=== PATIENT | male | born 2005 | race Caucasian/White ===

== ENCOUNTER 2025-01-26 14:18 | Emergency (ER) | payer OTHER, SELFPAY ==
[2025-01-26 14:50] VITALS: BP 124/68; PULSE 64; RESP 18; TEMP 36.9; O2SAT 99; BMI 25.8
[2025-01-26] MEDS: LIDOCAINE/EPINEP/TETRACAINE 3 ML GEL..ML. TOPICAL (15:12)
--- NOTE | 2025-01-26 15:19 | ED.WOUNDLAC ---
HPI - Wound/Laceration General Date Seen: 01/26/25 Chief Complaint: Laceration/Wound Stated Complaint: Cut RT Index finger Time Seen by Provider: 01/26/25 14:52 Source: patient Mode of arrival: ambulatory Limitations: no limitations History of Present Illness HPI narrative: Patient is a 19-year-old male presenting to emergency department laceration to his right index finger. It is on the dorsal aspect juice distal to the MCP. Has full range of motion of the finger. This happened at work his hand slipped and caught on not. Is working on a car at that time. No other concerns noted. Last tetanus shot was 2016 Related Data Previous Rx's ?Medication ?Instructions ?Recorded cephalexin 500 mg capsule 500 mg PO QID #20 caps 01/26/25 Allergies Allergy/AdvReac Type Severity Reaction Status Date / Time No Known Drug Allergies Allergy Verified 01/26/25 14:50 Review of Systems Narrative: Pertinent systems reviewed and were negative unless stated in HPI Exam Narrative: Exam Narrative: Const: Well-nourished, Well-developed, in mild distress Eyes: PERRL, no conjunctival injection, and symmetrical lids HENT: Atraumatic external nose and ears. Moist mucous membranes. MSK:Extremities w/o deformity, Normal Active ROM Skin: Warm, Dry. 0.5 cm laceration on the dorsal aspect of the right index finger about 1 or 2 cm up from the MCP. Neuro: Normal Muscle tone, No focal neurological deficits. Psych: Awake, Alert, & Oriented x3. Appropriate mood and affect. Const: Vital Signs, click to edit/add: Vital Signs - 24 hr 01/26/25 14:50 Temperature 98.5 F Pulse Rate [Pulse Oximeter] 64 Respiratory Rate 18 Blood Pressure [Ri ght Upper Arm] 124/68 Pulse Oximetry 99 Oxygen Delivery Me thod Room Air Course Vital Signs Vital signs: Initial Vital Signs Temperature 98.5 F 01/26/25 14:50 Temperature Source Temporal Artery Scan 01/26/25 14:50 Pulse Rate 64 01/26/25 14:50 Respiratory Rate 18 01/26/25 14:50 Blood Pressure 124/68 01/26/25 14:50 Blood Pressure Mean 86 01/26/25 14:50 Pulse Oximetry 99 01/26/25 14:50 Oxygen Delivery Method Room Air 01/26/25 14:50 Vital Signs Temperature 98.5 F 01/26/25 14:50 Pulse Rate 64 01/26/25 14:50 Respiratory Rate 18 01/26/25 14:50 Blood Pressure 124/68 01/26/25 14:50 Pulse Oximetry 99 01/26/25 14:50 Oxygen Delivery Method Room Air 01/26/25 14:50 Temperature 98.5 F 01/26/25 14:50 Pulse Rate 64 01/26/25 14:50 Respiratory Rate 18 01/26/25 14:50 Blood Pressure 124/68 01/26/25 14:50 Pulse Oximetry 99 01/26/25 14:50 Oxygen Delivery Method Room Air 01/26/25 14:50 Medications Administered Medications: Discontinued Medications Generic Name Dose Route Start Last Admin Trade Name Freq PRN Reason Stop Dose Admin Lidocaine/Epinephrine/Tetracaine 3 ml 01/26/25 14:59 01/26/25 15:12 Lidocaine/Epinep/Tetracaine 3 Ml Gel..Ml. TOPICAL 01/26/25 15:00 3 ml ONCE ONE Administration MDM - Wound/Laceration MDM Narrative Medical decision making narrative: Patient is a 19-year-old male presenting for laceration to his right finger. Is on the dorsal aspect. There is quite a grease around this was cleaned up appropriately. Initially did let to try and normal the area as is relatively small with Delmar wanted to sutures at the most. After the let he still has full sensation and I offered to do a nerve block but declined and states that this time he does wants to glue it. He does not want sutures. I informed him the increased chance of infection with the glue and he states he is aware. Either way I was planning on placing the patient on prophylactic antibiotics I will start him on Keflex. He is agreeable to this plan. Discharge Plan Discharge Clinical Impression: Laceration Patient Disposition: Home, Self-Care Condition: Stable Instructions: Finger Laceration (ED) Additional Instructions: Make sure you do not rub the area as it will cause the glue to fall off. Do not use topical antibiotics as it will cause the glue to dissolve prematurely. Take antibiotics as prescribed to help prevent infections. You will likely see see some redness tomorrow but if you see the redness running up the arm, getting worse or you develop notable pain to the finger return for re-evaluation. These could be signs of worsening infection Prescriptions: New cephalexin 500 mg capsule 500 mg PO QID Qty: 20 0RF Follow Up/Referrals: Provider,Not a Local [Primary Care Provider, Family Practice] Stand Alone Forms: MyHealth Info Instructions Procedures Laceration Right index finger: Site: hand Side (If applicable): right Size (cm): 0.5 Description: linear Depth: simple, single layer Skin layer closed with: other (Dermabond)
== END 2025-01-26 16:06 | disposition home or self-care (01) ==
PROVIDERS: Emergency Provider Student in an Organized Health Care Education/Training Program
DX: S61.210A Laceration without foreign body of right index finger without damage to nail, initial encounter (principal); W45.8XXA Other foreign body or object entering through skin, initial encounter; Y99.0 Civilian activity done for income or pay; Z23 Encounter for immunization
CPT/HCPCS: 12001; 90471; 99282; 99284